=== PATIENT | female | born 2000 | race Caucasian/White ===

== ENCOUNTER 2021-03-14 20:19 | Inpatient (IN) | payer OTHER, SELFPAY ==
[~2021-03-14] VITALS: Ht 167.6 cm; Wt 105.2 kg
[2021-03-14] MEDS ORDERED: LACTATED RINGERS 500 ML IV ONE (20:35)
[2021-03-14] MEDS ORDERED: CARBOPROST 250 MCG/ML AMP IM PRN (20:35)
[2021-03-14] MEDS ORDERED: METHYLERGONOVINE 0.2 MG/ML AMP IM PRN (20:35)
[2021-03-14] MEDS ORDERED: AMPICILLIN 2,000 MG in NACL 0.9% MINI-BAG PLUS 100 ML IV SCH (20:35)
[2021-03-14 21:33] VITALS: BP 117/65
[2021-03-14 21:37] LABS: BASOPHILS % (AUTO) 0.3 % (0.0-2.0); EOSINOPHILS # (AUTO) 0.1 K/uL (0-0.4); EOSINOPHILS % (AUTO) 0.7 % (0.0-4.0); HEMATOCRIT 35.2 % (36-48); HEMOGLOBIN 11.7 g/dL (12.0-16.0); LYMPHOCYTES # (AUTO) 1.8 K/uL (2.5-16.5); LYMPHOCYTES % (AUTO) 17.6 % (20.5-51.1); MEAN CORPUSCULAR HEMOGLOBIN 27 pg (27-31); MEAN CORPUSCULAR HGB CONC 33 g/dL (33-37); MEAN CORPUSCULAR VOLUME 81.7 fL (80-94); MONOCYTES # (AUTO) 0.7 K/uL (0.8-1.0); MONOCYTES % (AUTO) 7.2 % (1.7-9.3); NEUTROPHILS # (AUTO) 7.7 K/uL (1.8-7.7); NEUTROPHILS % (AUTO) 74.2 % (42.2-75.2); PLATELET COUNT (AUTO) 180 K/uL (140-450); RED BLOOD CELL COUNT(AUTO) 4.31 MIL/uL (4.20-5.40); RED CELL DISTRIBUTION WIDTH 15.6 % (11.6-13.7); WHITE BLOOD COUNT (AUTO) 10.4 K/uL (4.8-10.8)
[2021-03-14 21:39] LABS: APPEARANCE,URINE HAZY (CLEAR); BILIRUBIN,URINE NEGATIVE (NEGATIVE); BLOOD, URINE NEGATIVE (NEGATIVE); COLOR,URINE YELLOW (YELLOW); LEUKOCYTE ESTERASE ,URINE 1+ (NEGATIVE); NITRITE, URINE NEGATIVE (NEGATIVE); UGLUCOSE NEGATIVE (NEGATIVE)
[2021-03-14 21:47] LABS: BARBITURATE, URINE NEGATIVE ng/ml (NEG <=200); BENZODIAZEPINE, URINE NEGATIVE ng/mL (NEG <=200); CANNABINOID, URINE NEGATIVE ng/mL (NEG <=50); COCAINE, URINE NEGATIVE ng/mL (NEG <=300); OPIATE, URINE NEGATIVE ng/mL (NEG <=2000); PHENCYCLIDINE SCREEN,URINE NEGATIVE ng/mL (NEG <=25)
[2021-03-14 21:52] LABS: ALBUMIN 2.5 g/dL (3.4-5.0); ANION GAP 12.6 (8-16); CARBON DIOXIDE 24.3 mmol/L (21-32); CREATININE 0.8 mg/dL (0.6-1.3); POTASSIUM 3.9 mmol/L (3.5-5.1); TOTAL BILIRUBIN 0.2 mg/dL (0.0-1.0)
[2021-03-14 21:53] LABS: CALCIUM OXALATE CRYSTALS,UR 0-5 /HPF (None Seen); RBC,URINE 0-5 /HPF (0-5)
[2021-03-15] MEDS ORDERED: AMPICILLIN 1,000 MG in NACL 0.9% MINI-BAG PLUS 50 ML IV SCH ×2
[2021-03-15] MEDS ORDERED: OXYTOCIN 10 UNITS/ML VIAL IM SCH (07:40)
[2021-03-15] MEDS ORDERED: OXYTOCIN 20 UNITS in LACTATED RINGERS 1,000 ML IV SCH (07:40)
[2021-03-15] MEDS ORDERED: METHYLERGONOVINE 0.2 MG/ML AMP IM PRN (07:40)
[2021-03-15] MEDS ORDERED: LACTATED RINGERS 1,000 ML IV SCH ×2 (07:40)
[2021-03-15] MEDS ORDERED: NALBUPHINE 10 MG/ML AMP IVP PRN (07:40)
[2021-03-15] MEDS ORDERED: CARBOPROST 250 MCG/ML AMP IM PRN (07:40)
[2021-03-15] MEDS ORDERED: PROMETHAZINE 25 MG/ML VIAL IVP PRN (07:40)
--- NOTE | 2021-03-15 08:13 | NUR ---
PATIENT HAS BEEN SCREENED AND CATEGORIZED LOW NUTRITION RISK. PATIENT WILL BE SEEN WITHIN 7 DAYS OF ADMISSION. 03/21/[address]
[2021-03-15] MEDS: MISOPROSTOL 25 MCG TAB VG SCH ×3 (09:04→22:27)
[2021-03-15] MEDS: LACTATED RINGERS 1,000 ML IV SCH ×3 (09:05→23:16)
[2021-03-16] MEDS: MISOPROSTOL 25 MCG TAB VG SCH ×2 (02:27→06:27)
[2021-03-16] MEDS ORDERED: MISOPROSTOL 25 MCG TAB ONE (06:25)
[2021-03-16] MEDS: LACTATED RINGERS 1,000 ML IV SCH (06:40)
== END 2021-03-16 11:50 | disposition left against medical advice (07) | DRG 566 ==
LOC: MLD 20:19
PROVIDERS: ADMIT Obstetrics & Gynecology; ATTEND Obstetrics & Gynecology
PROC: 3E0DXGC Introduction of Other Therapeutic Substance into Mouth and Pharynx, External Approach (ICD-10-PCS; principal; 2021-03-16)
DX: O36.8130 Decreased fetal movements, third trimester, not applicable or unspecified (principal); O48.0 Post-term pregnancy; Z3A.40 40 weeks gestation of pregnancy; Z53.29 Procedure and treatment not carried out because of patient's decision for other reasons; Z20.822 Contact with and (suspected) exposure to COVID-19
CPT/HCPCS: 36415; 76815; 80053; 80305; 81001; 85025; 86592; 86762; 86886; 86900; 86901; 87086; 87340; 87653-90; Q0092